=== PATIENT | female | born 1960 | race Caucasian/White ===

== ENCOUNTER → 2017-04-09 | Outpatient (CLI) | payer OTHER | LOC: PT 10:53 | DX: Z01.818 Encounter for other preprocedural examination (principal) ==

== ENCOUNTER 2017-07-18 09:30 | Outpatient (RCR) | payer OTHER | END 2017-07-20 | disposition home or self-care (01) | LOC: PT | DX: Z47.1 Aftercare following joint replacement surgery (principal); Z96.652 Presence of left artificial knee joint ==

== ENCOUNTER 2018-09-16 08:00 | Outpatient (RCR) | payer OTHER | END 2018-09-16 08:30 | disposition home or self-care (01) | LOC: PT 08:00 | DX: M54.2 Cervicalgia (principal); S16.1XXA Strain of muscle, fascia and tendon at neck level, initial encounter; G89.29 Other chronic pain ==

== ENCOUNTER 2020-02-17 09:12 | Emergency (ER) | payer OTHER ==
[~2020-02-17] VITALS: Ht 170.2 cm; Wt 84.1 kg
[2020-02-17] MEDS ORDERED: PRINIVIL10 M1 PO (09:22)
[2020-02-17 09:55] LABS: EOS % 0.3 % (1.0-5.0); HEMATOCRIT 42.1 % (37.0-47.0); HEMOGLOBIN 13.7 g/dL (12.5-16.0); LYMPH# 1.1 (1.50-4.00); MEAN CELL VOLUME 88 fl (78-100); MEAN CORPUSCULAR HEMOGLOBIN 29 pg (27-31); MEAN CORPUSCULAR HGB CONC 33 g/dL (33-37); MEAN PLATELET VOLUME 10.4 fl (7.4-10.4); MONO # 0.3 (0.20-0.80); NEU # 5.1 (1.40-6.50); PLATELET COUNT 226 K/mm3 (130-400); RED BLOOD COUNT 4.77 M/mm3 (4.10-5.30); RED CELL DISTRIBUTION WIDTH 12.9 % (11.5-14.5); WHITE BLOOD COUNT 6.5 K/mm3 (4.8-10.8)
[2020-02-17 09:59] LABS: ALBUMIN 4.1 g/dL (3.5-5.0); POTASSIUM 4.1 mmol/L (3.5-5.1); SODIUM 139 mmol/L (136-145)
[2020-02-17 10:01] LABS: CALCIUM 8.7 mg/dL (8.3-10.5)
[2020-02-17 10:02] LABS: GLUCOSE 125 mg/dL (65-105); TOTAL PROTEIN 6.5 g/dL (6.4-8.3)
[2020-02-17 10:03] LABS: CARBON DIOXIDE 23 mmol/L (22-29)
[2020-02-17 10:04] LABS: TOTAL BILIRUBIN 0.4 mg/dL (0.2-1.2)
[2020-02-17 10:07] LABS: AST-SGOT 15 U/L (5-34)
[2020-02-17 10:08] LABS: ALT/SGPT 8 U/L (0-55)
[2020-02-17 10:15] LABS: TROPONIN-I < 0.03 ng/mL (<0.030)
[2020-02-17] MEDS ORDERED: ZOFRAN4 M2 PO (11:45)
[2020-02-17 11:50] VITALS: BP 146/89
== END 2020-02-17 11:46 | disposition home or self-care (01) ==
LOC: ED 09:12
PROVIDERS: Nurse Practitioner Primary Care
DX: I10 Essential (primary) hypertension (principal)
CPT/HCPCS: J1200; J1885; J2405

== ENCOUNTER 2021-04-30 09:00 | Outpatient (RCR) | payer BC ==
[~2021-04-30 09:00] MED LIST: PRINIVIL10 M1 PO; ZOFRAN4 M2 PO
== END 2021-05-11 23:59 | disposition home or self-care (01) ==
LOC: PT 09:00
DX: M17.11 Unilateral primary osteoarthritis, right knee (principal)

== ENCOUNTER 2021-05-14 09:00 | Outpatient (RCR) | payer BC | END 2021-06-11 | disposition home or self-care (01) | LOC: PT | DX: M17.11 Unilateral primary osteoarthritis, right knee (principal) ==

== ENCOUNTER 2021-06-14 09:20 | Outpatient (RCR) | payer BC | END 2021-07-09 | disposition home or self-care (01) | LOC: PT | DX: M17.11 Unilateral primary osteoarthritis, right knee (principal); Z96.651 Presence of right artificial knee joint ==

== ENCOUNTER 2021-07-11 09:23 | Outpatient (RCR) | payer BC | END 2021-07-18 17:00 | disposition home or self-care (01) | LOC: PT 09:23 | DX: M17.11 Unilateral primary osteoarthritis, right knee (principal); Z96.651 Presence of right artificial knee joint ==

== ENCOUNTER 2024-02-23 09:20 | Outpatient (RCR) | payer BC ==
[~2024-02-23 09:20] MED LIST changes: +ATORVASTATIN CA10 MG PO; +PROPRANOLOL HYD60 M1 PO
== END 2024-03-11 | disposition home or self-care (01) ==
LOC: PT
DX: M25.561 Pain in right knee (principal); Z96.651 Presence of right artificial knee joint

== ENCOUNTER 2024-03-12 08:00 | Outpatient (RCR) | payer BC | END 2024-04-10 | disposition home or self-care (01) | LOC: PT | DX: M25.561 Pain in right knee (principal); Z96.651 Presence of right artificial knee joint ==

== ENCOUNTER → 2024-04-30 | Outpatient (CLI) | payer BC | LOC: RAD 14:40 | DX: R05.9 Cough, unspecified (principal) ==

== ENCOUNTER → 2024-08-30 | Outpatient (CLI) | payer BC | LOC: RAD 14:39 | DX: S62.605A Fracture of unspecified phalanx of left ring finger, initial encounter for closed fracture (principal); X58.XXXA Exposure to other specified factors, initial encounter ==